=== PATIENT | female | born 1980 | race Caucasian/White ===

== ENCOUNTER → 2018-06-25 | Outpatient (CLI) | payer OTHER ==
[~2018-06-25] MED LIST: BUPR300T55 PO; CLIN30GE15 TP; ESCI20TA38 PO; HYDR30CR10 TP; KETO120S14 TP; TRET20CR37 TP
[2018-06-25 12:23] LABS: PLATELET COUNT, AUTOMATED 219 K/uL (150-450)
[2018-06-25 12:38] LABS: LDL CHOLESTEROL 96 mg/dl
== END ==
LOC: LAB 11:55
PROVIDERS: ATTEND Nurse Practitioner Family
DX: Z00.00 Encounter for general adult medical examination without abnormal findings (principal); R53.83 Other fatigue
CPT/HCPCS: 36415; 82040; 82247; 82310; 82374; 82435; 82465; 82565; 82947; 83718; 84075; 84132; 84155; 84295; 84439; 84443; 84450; 84460; 84478; 84480; 84520; 85025